=== PATIENT | male | born 1995 | race African-American/Black ===

== ENCOUNTER 2017-02-27 12:10 | Emergency (ER) | payer OTHER ==
[2017-02-27 12:13] VITALS: BP 136/72; PULSE 76; TEMP 98.4; BMI 44.9
--- NOTE | 2017-02-27 12:56 | PDOC ---
History of Present Illness - General Chief Complaint: Eye Problem Stated Complaint: PINK EYE Time Seen by Provider: 02/27/17 12:17 History Source: Patient Exam Limitations: No Limitations - History of Present Illness Initial Comments: 02/27/17 12:50 21 yr male with no medical history c/o cough productive phlegm, bilateral itchy red eyes with discharge for one day. Past History - Past Medical History Allergies/Adverse Reactions: Allergies Allergy/AdvReac Type Severity Reaction Status Date / Time No Known Allergies Allergy Verified 02/27/17 12:11 Home Medications: Ambulatory Orders Benzonatate [Tessalon Pearls -] 200 mg PO TID PRN #42 cap 02/27/17 Tobramycin 0.3% Ophth Soln [Tobrex Ophthalmic Solution -] 1 drop OU Q4HWA #2 bottle 02/27/17 - Immunization History Immunization Up to Date: Yes - Psycho/Social/Smoking Cessation Hx Anxiety: No Suicidal Ideation: No Smoking Status: No Smoking History: Never smoked Have you smoked in the past 12 months: No Number of Cigarettes Smoked Daily: 0 Information on smoking cessation initiated: No Hx Alcohol Use: No Drug/Substance Use Hx: No *Physical Exam - Vital Signs Last Vital Signs Temp Pulse Resp BP Pulse Ox 98.4 F 76 18 136/72 100 02/27/17 12:12 02/27/17 12:12 02/27/17 12:12 02/27/17 12:12 02/27/17 12:12 - Physical Exam General Appearance: Yes: Nourished, Appropriately Dressed HEENT: positive: EOMI, DANA, Other (bilateral conjunctival erythema with crusted discharge) Neck: positive: Supple. negative: Lymphadenopathy (R), Lymphadenopathy (L) Respiratory/Chest: positive: Lungs Clear, Normal Breath Sounds Cardiovascular: positive: Regular Rhythm, Regular Rate Musculoskeletal: positive: Normal Inspection Extremity: positive: Normal Inspection, Normal Range of Motion Integumentary: positive: Dry, Warm Neurologic: positive: Fully Oriented, Normal Response, Motor Strength 5/5 Medical Decision Making - Medical Decision Making 02/27/17 12:51 cc: bilateral eye discharge with redness, cough no fever or chills will prescribe tobramycin for conjunctivitis tessalon for cough as needed afebrile stable vitals non smoker denies ETOH or drug use no tobacco stable vitals non toxic 02/27/17 19:18 pt agrees with plan of care all questions asked and answered at discharge *DC/Admit/Observation/Transfer Diagnosis at time of Disposition: Conjunctivitis Qualifiers: Conjunctivitis type: acute Acute conjunctivitis type: viral Laterality: bilateral Qualified Code(s): B30.9 - Viral conjunctivitis, unspecified - Discharge Dispostion Disposition: HOME Condition at time of disposition: Good - Prescriptions Prescriptions: Benzonatate [Tessalon Pearls -] 200 mg PO TID PRN #42 cap PRN Reason: Cough Tobramycin 0.3% Ophth Soln [Tobrex Ophthalmic Solution -] 1 drop OU Q4HWA #2 bottle - Patient Instructions Additional Instructions: use the eye drops as directed wash hands frequently take the cough medicine as directed for coughing you should also increase vitamin C and Zinc intake (over the counter vitamins) to help boost immune system and fight off colds follow with your doctor in 2-3 days if any worsening symptoms
== END 2017-02-27 13:12 | disposition home or self-care (01) ==
LOC: JERFT 12:10
DX: B30.9 Viral conjunctivitis, unspecified (principal)
CPT/HCPCS: 99281-25

== ENCOUNTER 2022-07-21 20:48 | Emergency (ER) | payer OTHER ==
[2022-07-21 20:53] VITALS: BP 136/82; PULSE 91; RESP 18; TEMP 98; BMI 43.6
[2022-07-21] MEDS ORDERED: AMOX TR/POT CLAV 875MG/125MG TABLETS (FP) PO ONE (21:26)
[2022-07-21] MEDS ORDERED: IBUPROFEN 400 MG TABLET (FP) PO ONE (21:43)
[2022-07-21] MEDS ORDERED: ACETAMINOPHEN 500 MG TABLET (FP) PO ONE (21:44)
[2022-07-21] MEDS ORDERED: ACETAMINOPHEN 325 MG TABLET (FP) ONE (21:46)
[2022-07-21] MEDS ORDERED: IBUPROFEN 600 MG TABLET (FP) PO ONE (21:46)
[2022-07-21] MEDS ORDERED: AMOX TR/POT CLAV 875MG/125MG TABLETS (FP) ONE (21:46)
== END 2022-07-21 21:51 | disposition home or self-care (01) ==
LOC: JERFT 20:48
DX: S02.5XXA Fracture of tooth (traumatic), initial encounter for closed fracture (principal); Y99.8 Other external cause status
CPT/HCPCS: 99283-25